=== PATIENT | male | born 1995 | race Two or more races ===

== ENCOUNTER 2024-10-07 20:09 | Emergency (ER) | payer BC ==
[~2024-10-07] VITALS: Ht 167.6 cm; Wt 81.6 kg
[2024-10-07 20:43] VITALS: BP 148/75; TEMP 98.3; O2SAT 98
[2024-10-07] MEDS ORDERED: BICT1TAB PO (21:09)
[2024-10-07] MEDS ORDERED: CLON0.5T4 PO (21:09)
== END 2024-10-07 21:36 | disposition home or self-care (01) ==
LOC: ER 20:14
DX: F41.9 Anxiety disorder, unspecified (principal)

== ENCOUNTER 2024-11-23 13:24 | Emergency (ER) | payer BC, MEDICAID ==
[~2024-11-23] VITALS: Ht 167.6 cm; Wt 104.3 kg
[~2024-11-23 13:24] MED LIST: BICT1TAB PO; CLON0.5T4 PO
[2024-11-23] MEDS ORDERED: hydrOXYzine 10 MG TABLET ONE ×2 (14:15)
[2024-11-23 14:22] VITALS: BP 133/80; TEMP 98.8; O2SAT 97
[2024-11-23] MEDS: hydrOXYzine 10 MG TABLET PO ONE (14:23)
== END 2024-11-23 14:23 | disposition home or self-care (01) ==
LOC: ER 13:35
DX: F41.9 Anxiety disorder, unspecified (principal); F32.A Depression, unspecified; Z60.2 Problems related to living alone; Z79.899 Other long term (current) drug therapy
CPT/HCPCS: 99283; 93005; Q0177 ×2